=== PATIENT | female | born 1995 | race American Indian/Alaskan Native ===

== ENCOUNTER 2022-11-28 07:49 | Inpatient (IN) | payer MEDICAID ==
[2022-11-28] MEDS: Lactated Ringers 1,000 ML IV SCH ×2 (08:50→10:38)
[2022-11-28] MEDS ORDERED: Methylergonovine 0.2 MG/1 ML Amp IM PRN (09:16)
[2022-11-28] MEDS ORDERED: Misoprostol 400 MCG (4 X 100 MCG TAB) RECTAL PRN (09:16)
[2022-11-28] MEDS ORDERED: Tranexamic Acid 1,000 MG in Sodium Chloride 0.9% 100 ML IV PRN (09:16)
[2022-11-28] MEDS ORDERED: Carboprost Tromethamine 250 MCG/1 ML Amp IM PRN (09:16)
[2022-11-28] MEDS ORDERED: Acetaminophen 325 MG Tab PO PRN (09:16)
[2022-11-28] MEDS ORDERED: Lactated Ringers 1,000 ML IV ONE (09:16)
[2022-11-28] MEDS ORDERED: Lidocaine 1% 30 ML SDV INJECT PRN (09:16)
[2022-11-28] MEDS ORDERED: Ondansetron 4 MG/2 ML SDV IVPUSH PRN (09:16)
[2022-11-28] MEDS ORDERED: Sodium Chloride 0.9% 10 ML Syringe FLUSH PRN ×2 (09:16→11:08)
[2022-11-28] MEDS ORDERED: Oxytocin/Normal Saline 30 UNIT/500 ML BAG IV SCH (09:30)
[2022-11-28] MEDS: Ropivacaine 100 ML ONE ×2 (10:25→15:00)
[2022-11-28] MEDS ORDERED: Measles, Mumps & Rubella Vaccine 0.5 ML SDV SUBCUT ONE (11:08)
[2022-11-28] MEDS ORDERED: Benzocaine/Menthol 20%-0.5% Spray 78 GM Cannister TOP PRN (11:08)
[2022-11-28] MEDS ORDERED: Simethicone 80 MG Tab.Chew PO PRN (11:08)
[2022-11-28] MEDS ORDERED: Zolpidem 5 MG Tab PO PRN (11:08)
[2022-11-28] MEDS ORDERED: Oxytocin 10 Units/1 ML SDV IM PRN (11:08)
[2022-11-28] MEDS ORDERED: Phenylephrine HCl In 0.9% NaCl 1 MG/10 ML Syringe IVPUSH PRN (11:16)
[2022-11-28] MEDS ORDERED: ePHEDrine 50 MG/ML SDV IVPUSH PRN (11:16)
[2022-11-28] MEDS ORDERED: Ropivacaine 200 MG in Premix Bag 1 BAG EPIDUR SCH (11:30)
[2022-11-28] MEDS: Ibuprofen 800 MG Tab PO PRN (13:04)
[2022-11-28] MEDS: Docusate Sodium 100 MG Cap PO PRN (19:20)
[2022-11-28] MEDS ORDERED: hydrOXYzine HCl 25 MG Tab PO SCH (21:00)
[2022-11-29] MEDS ORDERED: Ferrous Sulfate 325 MG Tab PO SCH (08:00)
[2022-11-29] MEDS: Docusate Sodium 100 MG Cap PO PRN (08:06)
[2022-11-29] MEDS: Ibuprofen 800 MG Tab PO PRN (08:06)
[2022-11-29] MEDS ORDERED: Sertraline 50 MG Tab PO SCH (09:00)
[2022-11-29] MEDS ORDERED: Prenatal Multivitamin with Calcium/Folic Acid/Iron Tab PO SCH (09:00)
== END 2022-11-29 11:00 | disposition home or self-care (01) | DRG 807 ==
LOC: DL.OBCHECK 07:49 → DL.OB 08:32 → OBSVTOIN 11:00
PROVIDERS: ADMIT Family Medicine; ATTEND Family Medicine
PROC: 10E0XZZ Delivery of Products of Conception, External Approach (ICD-10-PCS; principal; 2022-11-28)
PROC: 10907ZC Drainage of Amniotic Fluid, Therapeutic from Products of Conception, Via Natural or Artificial Opening (ICD-10-PCS; 2022-11-28)
PROC: 3E0R3BZ Introduction of Anesthetic Agent into Spinal Canal, Percutaneous Approach (ICD-10-PCS; 2022-11-28)
PROC: 00HU33Z Insertion of Infusion Device into Spinal Canal, Percutaneous Approach (ICD-10-PCS; 2022-11-28)
DX: O99.02 Anemia complicating childbirth (principal); Z37.0 Single live birth; D64.9 Anemia, unspecified; O77.0 Labor and delivery complicated by meconium in amniotic fluid; O99.344 Other mental disorders complicating childbirth; F32.A Depression, unspecified; F41.9 Anxiety disorder, unspecified; O13.4 Gestational [pregnancy-induced] hypertension without significant proteinuria, complicating childbirth; Z3A.39 39 weeks gestation of pregnancy; Z87.891 Personal history of nicotine dependence
CPT/HCPCS: 01967; 36415; 59025; 59409; 85027; 86850; 86900; 86901; A9270-GY; J2590; J2795; J7120

== ENCOUNTER 2023-02-10 21:15 | Observation (INO) | payer MEDICAID ==
[2023-02-10] MEDS ORDERED: Sodium Chloride 0.9% 10 ML Syringe FLUSH PRN (21:47)
[2023-02-10] MEDS ORDERED: MVI, Adult with Vitamin K 10 ML, Folic Acid 1 MG, Thiamine 100 MG in Lactated Ringers 1... IV ONE ×4 (21:47)
[2023-02-10] MEDS ORDERED: Ondansetron 4 MG/2 ML SDV IVPUSH ONE (21:53)
[2023-02-10] MEDS ORDERED: LORazepam 2 MG/ML SDV IVPUSH ONE (21:53)
[2023-02-10 22:03] LABS: BASOPHILS PERCENT AUTO 0.5 % (0.0-1.0); EOSINOPHILS PERCENT AUTO 0.1 % (1.0-3.0); HEMATOCRIT 38.4 % (37.0-47.0); HEMOGLOBIN 13.2 g/dL (12.0-16.0); LYMPHOCYTES PERCENT AUTO 24.3 % (20.5-50.1); MEAN CORPUSCULAR HEMOGLOBIN 24.4 pg (27.0-34.0); MEAN CORPUSCULAR HGB CONC 34.4 g/dL (33.0-35.0); MONOCYTES PERCENT AUTO 6.4 % (2-8); NEUTROPHILS PERCENT AUTO 68.7 % (42.2-75.2); PLATELET COUNT,PLT 197 10^3/uL (150-450); RED BLOOD CELL COUNT 5.41 10^6/uL (4.2-5.4); WHITE BLOOD CELL COUNT,WBC 7.7 10^3/uL (5.0-10.0)
[2023-02-10 22:30] LABS: ALANINE AMINOTRANSFERASE,ALT 64 U/L (14-59); ALBUMIN 3.8 g/dL (3.4-5.0); ALKALINE PHOSPHATASE 145 U/L (46-116); AMYLASE 75 U/L (25-115); ANION GAP 20.3 mEq/L (7-13); ASPARTATE AMNIOTRANSFERASE,AST 74 U/L (15-37); BILIRUBIN TOTAL 1.7 mg/dL (0.2-1.0); BLOOD UREA NITROGEN,BUN 14 mg/dL (7-18); BUN/CREATININE RATIO 16.9 (No establ ref range); CARBON DIOXIDE,CO2 22 mmol/L (21-32); CHLORIDE,CL 96 mmol/L (98-107); CREATININE 0.83 mg/dL (0.55-1.02); EST CRCL DRUG DOSING (CG) 93.62 mL/min; ETHANOL BLOOD MEDICAL 173 mg/dL (0); GLUCOSE RANDOM 95 mg/dL (70-99); LIPASE 408 U/L (73-393); MAGNESIUM 1.8 mg/dL (1.8-2.4); POTASSIUM,K 3.3 mmol/L (3.5-5.1); PROTEIN TOTAL,TP 7.6 g/dL (6.4-8.2); SODIUM,NA 135 mmol/L (136-145); TSH ULTRASENSITIVE 5.74 uIU/mL (0.36-3.74)
[2023-02-10 22:31] LABS: ESTIMATED GFR 98 mL/min (>=60); LACTIC ACID 4.5 mmol/L (0.4-2.0)
[2023-02-10 22:38] LABS: INR 1.1 (0.9-1.2); PTT,PARTIAL THROMBOPLSTIN TIME 28.8 SEC (22.0-34.0)
[2023-02-10 23:42] LABS: APPEARANCE,URINE CLEAR (CLEAR); BILIRUBIN,URINE NEGATIVE (NEGATIVE); COLOR,URINE YELLOW (YELLOW); GLUCOSE,URINE NEGATIVE (NEGATIVE); KETONES,URINE NEGATIVE (NEGATIVE); LEUKOCYTE ESTERASE,URINE NEGATIVE (NEGATIVE); NITRITE,URINE NEGATIVE (NEGATIVE); OCCULT BLOOD,URINE LARGE (NEGATIVE); PH,URINE 6.5 (5.0-9.0); PROTEIN,URINE NEGATIVE (NEGATIVE); UROBILINOGEN,URINE 0.2 mg/dL (0.2-1.0)
[2023-02-10 23:48] LABS: AMPHETAMINES,URINE NEGATIVE (NEGATIVE); BARBITURATES,URINE NEGATIVE (NEGATIVE); BENZODIAZEPINE,URINE NEGATIVE (NEGATIVE); MDMA (ECSTASY), URINE NEGATIVE (NEGATIVE); METHADONE,URINE NEGATIVE (NEGATIVE); METHAMPHETAMINES,URINE NEGATIVE (NEGATIVE); OPIATES,URINE NEGATIVE (NEGATIVE); OXYCODONE,URINE NEGATIVE (NEGATIVE); PHENCYCLIDINE,URINE NEGATIVE (NEGATIVE); TCA,URINE NEGATIVE (NEGATIVE)
[2023-02-10 23:50] LABS: AMORPHOUS SEDIMENT,URINE RARE /HPF (NOT SEEN); BACTERIA,URINE FEW /HPF (0-FEW/HPF); EPITHELIAL CELLS,URINE FEW /HPF (NOT SEEN); MUCUS,URINE FEW /LPF (NOT SEEN); RBC,URINE SEMI-PACKED /HPF (0-5); WBC,URINE 0-5 /HPF (0-5/HPF)
[2023-02-11] MEDS ORDERED: Sodium Chloride 0.9% 1,000 ML IV ONE (00:22)
[2023-02-11] MEDS ORDERED: Ondansetron 4 MG/2 ML SDV IVPUSH PRN (00:59)
[2023-02-11] MEDS ORDERED: Potassium Chloride 10 MEQ Tab.ER PO ONE (01:06)
[2023-02-11] MEDS: Lactated Ringers 1,000 ML IV SCH ×3 (01:41→17:28)
[2023-02-11] MEDS: LORazepam 0.5 MG Tab PO PRN ×2 (01:51→03:59)
[2023-02-11] MEDS: LORazepam 2 MG/ML SDV IVPUSH PRN ×2 (09:03→13:27)
[2023-02-11] MEDS: Folic Acid 1 MG Tab PO SCH (09:10)
[2023-02-11] MEDS: Nicotine 7 MG/24 Hr Patch TRDERM SCH (09:11)
[2023-02-11] MEDS: Multivitamin Tab PO SCH (09:14)
[2023-02-11] MEDS: Sertraline 50 MG Tab PO SCH (09:14)
[2023-02-11] MEDS: Acetaminophen 325 MG Tab PO PRN (13:30)
[2023-02-11] MEDS: Thiamine 100 MG Tab PO SCH (21:05)
[2023-02-11] MEDS: LORazepam 1 MG Tab PO PRN (21:05)
[2023-02-12] MEDS: Lactated Ringers 1,000 ML IV SCH ×3 (01:24→19:48)
[2023-02-12] MEDS: LORazepam 1 MG Tab PO PRN ×4 (01:36→21:09)
[2023-02-12 06:54] LABS: ANION GAP 13.6 mEq/L (7-13); CALCIUM 8.2 mg/dL (8.5-10.1); CREATININE 0.71 mg/dL (0.55-1.02); EST CRCL DRUG DOSING (CG) 109.45 mL/min; MAGNESIUM 1.7 mg/dL (1.8-2.4); POTASSIUM,K 3.6 mmol/L (3.5-5.1)
[2023-02-12] MEDS: Acetaminophen 325 MG Tab PO PRN ×3 (08:33→22:50)
[2023-02-12] MEDS: Sertraline 50 MG Tab PO SCH (08:34)
[2023-02-12] MEDS: Folic Acid 1 MG Tab PO SCH (08:34)
[2023-02-12] MEDS: Multivitamin Tab PO SCH (08:35)
[2023-02-12] MEDS: Ondansetron 4 MG Tab.DIS PO PRN (08:35)
[2023-02-12] MEDS: Nicotine 7 MG/24 Hr Patch TRDERM SCH (08:36)
[2023-02-12] MEDS ORDERED: Magnesium Oxide 400 MG Tab PO ONE (10:00)
[2023-02-12] MEDS: Thiamine 100 MG Tab PO SCH (21:10)
[2023-02-13] MEDS: Nicotine 7 MG/24 Hr Patch TRDERM SCH ×2 (01:08→09:23)
[2023-02-13] MEDS: LORazepam 1 MG Tab PO PRN (02:59)
[2023-02-13] MEDS: Acetaminophen 325 MG Tab PO PRN ×2 (04:00→09:13)
[2023-02-13] MEDS ORDERED: Magnesium Oxide 400 MG Tab PO SCH (08:00)
[2023-02-13] MEDS: Sertraline 50 MG Tab PO SCH (09:12)
[2023-02-13] MEDS: Folic Acid 1 MG Tab PO SCH (09:13)
[2023-02-13] MEDS: Multivitamin Tab PO SCH (09:13)
[2023-02-13] MEDS: Ondansetron 4 MG Tab.DIS PO PRN (09:14)
== END 2023-02-13 10:45 | disposition home or self-care (01) ==
LOC: DL.ED 21:15 → INTOOBSV 02-11 00:20 → DL.MS 02-11 00:20
PROVIDERS: ADMIT Internal Medicine; ATTEND Internal Medicine
DX: F41.9 Anxiety disorder, unspecified (principal); F10.130 Alcohol abuse with withdrawal, uncomplicated; E87.1 Hypo-osmolality and hyponatremia; E87.6 Hypokalemia; E83.42 Hypomagnesemia; F32.A Depression, unspecified; E66.9 Obesity, unspecified; Y90.0 Blood alcohol level of less than 20 mg/100 ml; Z79.899 Other long term (current) drug therapy; Z68.34 Body mass index [BMI] 34.0-34.9, adult
CPT/HCPCS: 36415; 80048; 80053; 80305-QW; 80307; 81001; 81025; 82150; 83605; 83690; 83735; 84145; 84443; 85025; 85610; 85730; 93005; 93010; 96365; 96375; 99284; 99285-25; A9270-GY; G0378; J2060; J2405; J3411; J3490; J7030; J7120

== ENCOUNTER 2023-10-27 08:58 | Inpatient (IN) | payer MEDICAID ==
[~2023-10-27 08:58] MED LIST: Acetaminophen 325 MG Tab PO PRN; Carboprost Tromethamine 250 MCG/1 ML Amp IM PRN; Methylergonovine 0.2 MG/1 ML Amp IM PRN; Misoprostol 400 MCG (4 X 100 MCG TAB) RECTAL PRN; Ondansetron 4 MG/2 ML SDV IVPUSH PRN; Sodium Chloride 0.9% 10 ML Syringe FLUSH PRN; Tranexamic Acid 1,000 MG in Sodium Chloride 0.9% 100 ML IV PRN
[2023-10-27 09:34] LABS: HEMATOCRIT 31.8 % (37.0-47.0); HEMOGLOBIN 9.8 g/dL (12.0-16.0); MEAN CORPUSCULAR HEMOGLOBIN 21.6 pg (27.0-34.0); MEAN CORPUSCULAR HGB CONC 30.8 g/dL (33.0-35.0); RED BLOOD CELL COUNT 4.54 10^6/uL (4.2-5.4)
[2023-10-27] MEDS: Misoprostol 25 MCG (1/4 of 100 MCG) Tab VAG SCH (09:45)
[2023-10-27] MEDS: Misoprostol 25 MCG (1/4 of 100 MCG) Tab VAG ONE (13:51)
[2023-10-27] MEDS: Misoprostol 100 MCG Tab PO ONE (14:38)
[2023-10-27] MEDS: Misoprostol 25 MCG (1/4 of 100 MCG) Tab VAG PRN (21:56)
[2023-10-27] MEDS: Calcium Carbonate 500 MG Tab.Chew PO PRN (21:56)
[2023-10-28] MEDS ORDERED: Calcium Carbonate 500 MG Tab.Chew PO PRN (00:02)
[2023-10-28] MEDS: Oxytocin/Normal Saline 30 UNIT/500 ML BAG IV SCH (04:02)
[2023-10-28] MEDS: Lactated Ringers 1,000 ML IV SCH (04:02)
[2023-10-28] MEDS: Lactated Ringers 1,000 ML IV ONE (06:56)
[2023-10-28] MEDS ORDERED: Bupivacaine 0.25% 10 ML SDV ONE (07:28)
[2023-10-28] MEDS ORDERED: fentaNYL 100 MCG/2 ML SDV ONE (07:28)
[2023-10-28] MEDS ORDERED: Phenylephrine HCl In 0.9% NaCl 1 MG/10 ML Syringe IVPUSH PRN (07:56)
[2023-10-28] MEDS ORDERED: ePHEDrine 50 MG/ML SDV IVPUSH PRN (07:56)
[2023-10-28] MEDS ORDERED: Ropivacaine 200 MG in Premix Bag 1 BAG EPIDUR SCH (08:00)
[2023-10-28] MEDS ORDERED: Simethicone 80 MG Tab.Chew PO PRN (09:34)
[2023-10-28] MEDS ORDERED: Sodium Chloride 0.9% 10 ML Syringe FLUSH PRN (09:34)
[2023-10-28] MEDS ORDERED: Carboprost Tromethamine 250 MCG/1 ML Amp IM PRN (09:34)
[2023-10-28] MEDS ORDERED: Oxytocin 10 Units/1 ML SDV IM PRN (09:34)
[2023-10-28] MEDS ORDERED: Tranexamic Acid 1,000 MG in Sodium Chloride 0.9% 100 ML IV PRN (09:34)
[2023-10-28] MEDS ORDERED: Misoprostol 400 MCG (4 X 100 MCG TAB) RECTAL PRN (09:34)
[2023-10-28] MEDS: Benzocaine/Menthol 20%-0.5% Spray 78 GM Cannister TOP PRN (13:18)
[2023-10-28] MEDS: Sertraline 50 MG Tab PO SCH (13:18)
[2023-10-28] MEDS: Docusate Sodium 100 MG Cap PO PRN (13:19)
[2023-10-28] MEDS: buPROPion 150 MG Tab.ER PO SCH (13:19)
[2023-10-28] MEDS: Acetaminophen 325 MG Tab PO PRN (13:25)
[2023-10-28] MEDS: Ibuprofen 800 MG Tab PO PRN (16:53)
[2023-10-29] MEDS: Lidocaine 1% 30 ML SDV INJECT ONE (05:08)
[2023-10-29] MEDS: Prenatal Multivitamin with Calcium/Folic Acid/Iron Tab PO SCH (09:09)
[2023-10-29 10:17] LABS: HEMATOCRIT 32.8 % (37.0-47.0); HEMOGLOBIN 10.2 g/dL (12.0-16.0); MEAN CORPUSCULAR HEMOGLOBIN 21.9 pg (27.0-34.0); MEAN CORPUSCULAR HGB CONC 31.1 g/dL (33.0-35.0); MEAN CORPUSCULAR VOLUME 70.4 fL (80-100); RED BLOOD CELL COUNT 4.66 10^6/uL (4.2-5.4); WHITE BLOOD CELL COUNT,WBC 7.6 10^3/uL (5.0-10.0)
[2023-10-29] MEDS: Measles, Mumps & Rubella Vaccine 0.5 ML SDV SUBCUT ONE (16:57)
== END 2023-10-29 18:30 | disposition home or self-care (01) | DRG 805 ==
LOC: DL.OB 08:58 → OBSVTOIN 10-28 09:36 → DL.OB 10-29 14:08
PROVIDERS: ADMIT Student in an Organized Health Care Education/Training Program; ATTEND Student in an Organized Health Care Education/Training Program
PROC: 10E0XZZ Delivery of Products of Conception, External Approach (ICD-10-PCS; principal; 2023-10-28)
PROC: 10907ZC Drainage of Amniotic Fluid, Therapeutic from Products of Conception, Via Natural or Artificial Opening (ICD-10-PCS; 2023-10-28)
PROC: 3E0P7VZ Introduction of Hormone into Female Reproductive, Via Natural or Artificial Opening (ICD-10-PCS; 2023-10-28)
PROC: 3E0R3BZ Introduction of Anesthetic Agent into Spinal Canal, Percutaneous Approach (ICD-10-PCS; 2023-10-28)
PROC: 00HU33Z Insertion of Infusion Device into Spinal Canal, Percutaneous Approach (ICD-10-PCS; 2023-10-28)
DX: O26.643 Intrahepatic cholestasis of pregnancy, third trimester (principal); K83.1 Obstruction of bile duct; O99.344 Other mental disorders complicating childbirth; F32.A Depression, unspecified; O99.334 Smoking (tobacco) complicating childbirth; F17.200 Nicotine dependence, unspecified, uncomplicated; F41.9 Anxiety disorder, unspecified; Z37.0 Single live birth; Z3A.37 37 weeks gestation of pregnancy
CPT/HCPCS: 01967; 36415; 51701; 59409; 85027; 86850; 86900; 86901; 90471; 90707; A9270-GY; C1729; J2590; J7120

== ENCOUNTER 2023-11-03 19:02 | Emergency (ER) | payer MEDICAID ==
[2023-11-03 19:31] LABS: BASOPHILS PERCENT AUTO 0.3 % (0.0-1.0); EOSINOPHILS PERCENT AUTO 2.7 % (1.0-3.0); HEMATOCRIT 35.6 % (37.0-47.0); HEMOGLOBIN 10.8 g/dL (12.0-16.0); LYMPHOCYTES PERCENT AUTO 19.7 % (20.5-50.1); MEAN CORPUSCULAR HEMOGLOBIN 21.1 pg (27.0-34.0); MEAN CORPUSCULAR HGB CONC 30.3 g/dL (33.0-35.0); MEAN CORPUSCULAR VOLUME 69.7 fL (80-100); MONOCYTES PERCENT AUTO 5.8 % (2-8); NEUTROPHILS PERCENT AUTO 71.5 % (42.2-75.2); PLATELET COUNT,PLT 456 10^3/uL (150-450); RED BLOOD CELL COUNT 5.11 10^6/uL (4.2-5.4); WHITE BLOOD CELL COUNT,WBC 9.6 10^3/uL (5.0-10.0)
[2023-11-03 19:49] LABS: ALANINE AMINOTRANSFERASE,ALT 33 U/L (14-59); ALBUMIN 2.3 g/dL (3.4-5.0); ALKALINE PHOSPHATASE 278 U/L (46-116); ANION GAP 15.6 mEq/L (7-13); ASPARTATE AMNIOTRANSFERASE,AST 58 U/L (15-37); BILIRUBIN TOTAL 0.6 mg/dL (0.2-1.0); BLOOD UREA NITROGEN,BUN 15 mg/dL (7-18); BUN/CREATININE RATIO 17.2 (No establ ref range); CARBON DIOXIDE,CO2 25 mmol/L (21-32); CHLORIDE,CL 104 mmol/L (98-107); CREATININE 0.87 mg/dL (0.55-1.02); EST CRCL DRUG DOSING (CG) 88.51 mL/min; GLUCOSE RANDOM 95 mg/dL (70-99); LIPASE 17 U/L (16-77); POTASSIUM,K 3.6 mmol/L (3.5-5.1); PROTEIN TOTAL,TP 6.7 g/dL (6.4-8.2); SODIUM,NA 141 mmol/L (136-145)
[2023-11-03 19:51] LABS: A/G RATIO 0.52; ESTIMATED GFR 92 mL/min (>=60)
[2023-11-03 20:29] LABS: APPEARANCE,URINE TURBID (CLEAR); BILIRUBIN,URINE NEGATIVE (NEGATIVE); COLOR,URINE YELLOW (YELLOW); GLUCOSE,URINE NEGATIVE (NEGATIVE); KETONES,URINE NEGATIVE (NEGATIVE); LEUKOCYTE ESTERASE,URINE MODERATE (NEGATIVE); NITRITE,URINE POSITIVE (NEGATIVE); OCCULT BLOOD,URINE MODERATE (NEGATIVE); PH,URINE 8.5 (5.0-9.0); PROTEIN,URINE 100 (NEGATIVE)
[2023-11-03 20:50] LABS: AMPHETAMINES,URINE NEGATIVE (NEGATIVE); BARBITURATES,URINE NEGATIVE (NEGATIVE); BENZODIAZEPINE,URINE NEGATIVE (NEGATIVE); MDMA (ECSTASY), URINE NEGATIVE (NEGATIVE); METHADONE,URINE NEGATIVE (NEGATIVE); METHAMPHETAMINES,URINE NEGATIVE (NEGATIVE); OPIATES,URINE NEGATIVE (NEGATIVE); OXYCODONE,URINE NEGATIVE (NEGATIVE); PHENCYCLIDINE,URINE NEGATIVE (NEGATIVE); TCA,URINE NEGATIVE (NEGATIVE)
[2023-11-03 20:54] LABS: BACTERIA,URINE MANY /HPF (0-FEW/HPF); EPITHELIAL CELLS,URINE MODERATE /HPF (NOT SEEN); WBC,URINE >100 /HPF (0-5/HPF)
[2023-11-03] MEDS: Iopamidol 755 Mg/ML 100 ML Bottle IVPUSH ONE (21:28)
[2023-11-03] MEDS: Iopamidol 612 MG/ML 100 ML Bottle IVPUSH ONE (21:29)
[2023-11-03] MEDS: Ketorolac 30 MG/ML SDV IVPUSH ONE (22:08)
[2023-11-03] MEDS: Acetaminophen 500 MG Tab PO ONE (22:09)
== END 2023-11-03 23:55 | disposition home or self-care (01) ==
LOC: DL.ED 19:02
DX: K80.50 Calculus of bile duct without cholangitis or cholecystitis without obstruction (principal); Z79.899 Other long term (current) drug therapy
CPT/HCPCS: 36415; 71275; 80053; 80305-QW; 80307; 81001; 81025; 83690; 84484; 85025; 85379; 87086; 93005; 93010; 96374; 99284; 99284-25; A9270-GY; J1885; Q9967

== ENCOUNTER 2024-05-09 19:07 | Emergency (ER) | payer MEDICAID ==
[2024-05-09] MEDS: Sodium Chloride 0.9% 1,000 ML IV ONE ×2 (19:38→21:28)
[2024-05-09 19:39] LABS: BASOPHILS PERCENT AUTO 0.3 % (0.0-1.0); EOSINOPHILS PERCENT AUTO 0.9 % (1.0-3.0); HEMATOCRIT 37.7 % (37.0-47.0); HEMOGLOBIN 12.1 g/dL (12.0-16.0); LYMPHOCYTES PERCENT AUTO 33.5 % (20.5-50.1); MEAN CORPUSCULAR HEMOGLOBIN 22.2 pg (27.0-34.0); MEAN CORPUSCULAR HGB CONC 32.1 g/dL (33.0-35.0); MEAN CORPUSCULAR VOLUME 69.2 fL (80-100); MONOCYTES PERCENT AUTO 4.7 % (2-8); NEUTROPHILS PERCENT AUTO 60.6 % (42.2-75.2); PLATELET COUNT,PLT 450 10^3/uL (150-450); RED BLOOD CELL COUNT 5.45 10^6/uL (4.2-5.4); WHITE BLOOD CELL COUNT,WBC 6.7 10^3/uL (5.0-10.0)
[2024-05-09 19:53] LABS: APPEARANCE,URINE CLEAR (CLEAR); BILIRUBIN,URINE NEGATIVE (NEGATIVE); COLOR,URINE YELLOW (YELLOW); GLUCOSE,URINE NEGATIVE (NEGATIVE); KETONES,URINE NEGATIVE (NEGATIVE); LEUKOCYTE ESTERASE,URINE NEGATIVE (NEGATIVE); NITRITE,URINE NEGATIVE (NEGATIVE); OCCULT BLOOD,URINE NEGATIVE (NEGATIVE); PROTEIN,URINE NEGATIVE (NEGATIVE); UROBILINOGEN,URINE 0.2 mg/dL (0.2-1.0)
[2024-05-09 19:56] LABS: CREATINE KINASE,CK 752 U/L (16-191); LIPASE 26 U/L (16-77); MAGNESIUM 2.3 mg/dL (1.8-2.4)
[2024-05-09 20:00] LABS: BENZODIAZEPINE,URINE NEGATIVE (NEGATIVE); MDMA (ECSTASY), URINE NEGATIVE (NEGATIVE); METHADONE,URINE NEGATIVE (NEGATIVE); METHAMPHETAMINES,URINE NEGATIVE (NEGATIVE); OPIATES,URINE NEGATIVE (NEGATIVE); TCA,URINE NEGATIVE (NEGATIVE)
[2024-05-09 20:01] LABS: AMPHETAMINES,URINE NEGATIVE (NEGATIVE); BARBITURATES,URINE NEGATIVE (NEGATIVE); OXYCODONE,URINE NEGATIVE (NEGATIVE); PHENCYCLIDINE,URINE NEGATIVE (NEGATIVE)
[2024-05-09 20:04] LABS: PROTHROMBIN TIME 10.7 SEC (9.0-12.0)
[2024-05-09 20:10] LABS: ETHANOL BLOOD MEDICAL 353 mg/dL (0)
[2024-05-09] MEDS: Iopamidol 755 Mg/ML 100 ML Bottle IVPUSH ONE (20:48)
[2024-05-09] MEDS: Pantoprazole 40 MG Vial IVPUSH ONE (21:48)
== END 2024-05-09 22:39 | disposition left against medical advice (07) ==
LOC: DL.ED 19:07
DX: R07.9 Chest pain, unspecified (principal); E86.0 Dehydration; K62.5 Hemorrhage of anus and rectum; F10.129 Alcohol abuse with intoxication, unspecified; F17.200 Nicotine dependence, unspecified, uncomplicated
CPT/HCPCS: 36415; 71045; 71275; 80305-QW; 80307; 81003; 81025; 82272; 82550; 83690; 83735; 84484; 85025; 85379; 85610; 93005; 93010; 96361; 96374; 99284; 99285-25; J2470; J7030; Q9967

== ENCOUNTER 2024-05-10 19:54 | Emergency (ER) | payer MEDICAID ==
[2024-05-10 20:13] LABS: BASOPHILS PERCENT AUTO 0.5 % (0.0-1.0); EOSINOPHILS PERCENT AUTO 0.3 % (1.0-3.0); HEMATOCRIT 35.4 % (37.0-47.0); HEMOGLOBIN 11.5 g/dL (12.0-16.0); LYMPHOCYTES PERCENT AUTO 22.6 % (20.5-50.1); MEAN CORPUSCULAR HEMOGLOBIN 22.5 pg (27.0-34.0); MEAN CORPUSCULAR HGB CONC 32.5 g/dL (33.0-35.0); MEAN CORPUSCULAR VOLUME 69.1 fL (80-100); MONOCYTES PERCENT AUTO 5.2 % (2-8); NEUTROPHILS PERCENT AUTO 71.4 % (42.2-75.2); PLATELET COUNT,PLT 410 10^3/uL (150-450); RED BLOOD CELL COUNT 5.12 10^6/uL (4.2-5.4); WHITE BLOOD CELL COUNT,WBC 9.5 10^3/uL (5.0-10.0)
[2024-05-10] MEDS: Sodium Chloride 0.9% 1,000 ML IV ONE ×2 (20:22→21:20)
[2024-05-10 20:37] LABS: A/G RATIO 0.8; ALANINE AMINOTRANSFERASE,ALT 48 U/L (14-59); ALBUMIN 3.5 g/dL (3.4-5.0); ALKALINE PHOSPHATASE 133 U/L (46-116); ANION GAP 16.3 mEq/L (7-13); ASPARTATE AMNIOTRANSFERASE,AST 41 U/L (15-37); BILIRUBIN TOTAL 1.4 mg/dL (0.2-1.0); BLOOD UREA NITROGEN,BUN 11 mg/dL (7-18); BUN/CREATININE RATIO 11.3 (No establ ref range); CALCIUM 8.3 mg/dL (8.5-10.1); CARBON DIOXIDE,CO2 22 mmol/L (21-32); CHLORIDE,CL 102 mmol/L (98-107); CREATINE KINASE,CK 780 U/L (16-191); CREATININE 0.97 mg/dL (0.55-1.02); EST CRCL DRUG DOSING (CG) 79.39 mL/min; GLUCOSE RANDOM 82 mg/dL (70-99); LIPASE 27 U/L (16-77); MAGNESIUM 1.5 mg/dL (1.8-2.4); POTASSIUM,K 3.3 mmol/L (3.5-5.1); SODIUM,NA 137 mmol/L (136-145)
[2024-05-10 20:39] LABS: ESTIMATED GFR 81 mL/min (>=60); ETHANOL BLOOD MEDICAL < 3 mg/dL (0)
[2024-05-10 20:45] LABS: PROTHROMBIN TIME 10.8 SEC (9.0-12.0)
[2024-05-10] MEDS: Magnesium Sulfate/Water 2 GM in Premix Bag 1 BAG IV ONE (21:01)
[2024-05-10] MEDS: Potassium Chloride 10 MEQ Tab.ER PO ONE (21:01)
[2024-05-10 21:17] LABS: APPEARANCE,URINE CLEAR (CLEAR); BILIRUBIN,URINE NEGATIVE (NEGATIVE); COLOR,URINE YELLOW (YELLOW); GLUCOSE,URINE NEGATIVE (NEGATIVE); KETONES,URINE NEGATIVE (NEGATIVE); LEUKOCYTE ESTERASE,URINE NEGATIVE (NEGATIVE); NITRITE,URINE NEGATIVE (NEGATIVE); OCCULT BLOOD,URINE NEGATIVE (NEGATIVE); PROTEIN,URINE NEGATIVE (NEGATIVE); UROBILINOGEN,URINE 0.2 mg/dL (0.2-1.0)
[2024-05-10 21:19] LABS: AMPHETAMINES,URINE NEGATIVE (NEGATIVE); BARBITURATES,URINE NEGATIVE (NEGATIVE); BENZODIAZEPINE,URINE NEGATIVE (NEGATIVE); MDMA (ECSTASY), URINE NEGATIVE (NEGATIVE); METHADONE,URINE NEGATIVE (NEGATIVE); METHAMPHETAMINES,URINE NEGATIVE (NEGATIVE); OPIATES,URINE NEGATIVE (NEGATIVE); OXYCODONE,URINE NEGATIVE (NEGATIVE); PHENCYCLIDINE,URINE NEGATIVE (NEGATIVE); TCA,URINE NEGATIVE (NEGATIVE)
[2024-05-10] MEDS: Acetaminophen 325 MG Tab PO ONE (21:27)
[2024-05-10] MEDS: Iopamidol 612 MG/ML 100 ML Bottle IVPUSH ONE (21:45)
== END 2024-05-10 23:01 | disposition home or self-care (01) ==
LOC: DL.ED 19:54
DX: R07.9 Chest pain, unspecified (principal); R10.32 Left lower quadrant pain; E83.42 Hypomagnesemia; E87.6 Hypokalemia; E86.9 Volume depletion, unspecified; F17.200 Nicotine dependence, unspecified, uncomplicated; Z79.899 Other long term (current) drug therapy
CPT/HCPCS: 36415; 71045; 74177; 80053; 80305; 80307; 81003; 82550; 83690; 83735; 84484; 85025; 85610; 93005; 96361; 96365; 96366; 99285; A9270; J3475; J7030; Q9967; 93010; 99284

== ENCOUNTER 2024-08-31 22:49 | Emergency (ER) | payer MEDICAID | END 2024-09-01 01:40 | disposition left against medical advice (07) | LOC: DL.ED 22:49 | DX: Z53.21 Procedure and treatment not carried out due to patient leaving prior to being seen by health care provider (principal) ==

== ENCOUNTER 2024-11-12 18:06 | Emergency (ER) | payer MEDICAID ==
[2024-11-12] MEDS ORDERED: Sodium Chloride 0.9% 10 ML Syringe FLUSH PRN (18:08)
[2024-11-12 18:21] LABS: BASOPHILS PERCENT AUTO 0.1 % (0.0-1.0); EOSINOPHILS PERCENT AUTO 0.1 % (1.0-3.0); HEMATOCRIT 36.2 % (37.0-47.0); HEMOGLOBIN 11.1 g/dL (12.0-16.0); LYMPHOCYTES PERCENT AUTO 8.3 % (20.5-50.1); MEAN CORPUSCULAR HEMOGLOBIN 20.9 pg (27.0-34.0); MEAN CORPUSCULAR HGB CONC 30.7 g/dL (33.0-35.0); MONOCYTES PERCENT AUTO 7.1 % (2-8); NEUTROPHILS PERCENT AUTO 84.4 % (42.2-75.2); PLATELET COUNT,PLT 421 10^3/uL (150-450); RED BLOOD CELL COUNT 5.32 10^6/uL (4.2-5.4); WHITE BLOOD CELL COUNT,WBC 13.6 10^3/uL (5.0-10.0)
[2024-11-12] MEDS: Acetaminophen 500 MG Tab PO ONE (18:34)
[2024-11-12] MEDS: Ketorolac 30 MG/ML SDV IVPUSH ONE (18:34)
[2024-11-12] MEDS: Sodium Chloride 0.9% 1,000 ML IV ONE ×2 (18:34→18:35)
[2024-11-12 18:40] LABS: A/G RATIO 0.7; ALANINE AMINOTRANSFERASE,ALT 49 U/L (14-59); ALBUMIN 3.4 g/dL (3.4-5.0); ALKALINE PHOSPHATASE 124 U/L (46-116); ANION GAP 13.6 mEq/L (7-13); ASPARTATE AMNIOTRANSFERASE,AST 26 U/L (15-37); BILIRUBIN TOTAL 0.3 mg/dL (0.2-1.0); BLOOD UREA NITROGEN,BUN 12 mg/dL (7-18); BUN/CREATININE RATIO 12.4 (No establ ref range); C-REACTIVE PROTEIN 2.67 ng/dL (<=0.50); CALCIUM 8.6 mg/dL (8.5-10.1); CARBON DIOXIDE,CO2 24 mmol/L (21-32); CHLORIDE,CL 103 mmol/L (98-107); CREATININE 0.97 mg/dL (0.55-1.02); EST CRCL DRUG DOSING (CG) 78.67 mL/min; GLUCOSE RANDOM 99 mg/dL (70-99); MAGNESIUM 1.9 mg/dL (1.8-2.4); POTASSIUM,K 3.6 mmol/L (3.5-5.1); PROTEIN TOTAL,TP 8.2 g/dL (6.4-8.2); SODIUM,NA 137 mmol/L (136-145)
[2024-11-12 18:41] LABS: ESTIMATED GFR 80 mL/min (>=60)
[2024-11-12 18:45] LABS: HCG QUALITATIVE,SERUM NEGATIVE (NEGATIVE)
[2024-11-12 18:46] LABS: LACTIC ACID 1.3 mmol/L (0.4-2.0)
[2024-11-12] MEDS: cefTRIAXone 2 GM Vial IVPUSH ONE (19:01)
== END 2024-11-12 19:47 | disposition home or self-care (01) ==
LOC: DL.ED 18:06
DX: J18.9 Pneumonia, unspecified organism (principal); Z79.899 Other long term (current) drug therapy
CPT/HCPCS: 36415; 71046; 80053; 83605; 83735; 84703; 85025; 86140; 87081; 87428; 87430; 96374; 96375; 99284; A9270; J0696; J1885; J7030